=== PATIENT | male | born 1965 | race Caucasian/White ===

== ENCOUNTER 2017-06-05 10:47 | Outpatient (CLI) | payer OTHER ==
--- NOTE | 2017-06-05 16:14 | DIAGNOSTIC IMAGING REPORT ---
PROCEDURE: XR UPPER GI WITH AIR INDICATION: ABD PAIN TECHNIQUE: Real time fluoroscopy was used on the upper GI system. Total fluoro time 4.0 minutes. Cumulative dose 3392.76 mGy 114 images obtained including cine imaging and last image hold screen capture images. COMPARISON: None. FINDINGS: The swallowing mechanism is normal without aspiration. The proximal esophagus is normal in course, contour, and caliber. The mid to distal esophagus is mildly patulous with mucosal surface is normal. In the distal esophagus, there is a Schatzki's ring with a diameter estimated be about 14 mm. There is a very small fixed hiatal hernia in both the upright and recumbent positions. In the recumbent position, there was moderate to significant gastroesophageal reflux to the level of the clavicular heads. Motility is otherwise normal. The stomach is normal in morphology without mass, obvious ulceration, significant changes of gastritis or obstruction. The pylorus and duodenal sweep are normal. Prompt gastric emptying and normal motility in the upper intestines. IMPRESSION: 1. There is a Schatzki's ring which, at the current size, may or may not be symptomatic. The mid to distal esophagus, however, is mildly patulous. 2. Moderate to significant gastroesophageal reflux to the level of the clavicular heads.
== END 2017-06-05 23:00 ==
LOC: XR SRH 10:47
DX: R10.9 Unspecified abdominal pain (principal); K22.2 Esophageal obstruction; K21.9 Gastro-esophageal reflux disease without esophagitis